=== PATIENT | male | born 1965 | race Caucasian/White ===

== ENCOUNTER 2023-11-27 10:02 | Day surgery (SDC) | payer OTHER ==
[~2023-11-27] VITALS: Ht 167.6 cm; Wt 75.3 kg
[~2023-11-27 10:02] MED LIST: AZELASTINE137 MCG/06; Lactated Ringer's 1,000 ML IV ONE; TAMS.4ER PO
[2023-11-27] MEDS ORDERED: ASPI81CH (10:33)
[2023-11-27] MEDS ORDERED: ATOR20 (10:33)
[2023-11-27] MEDS ORDERED: ALOGLIPTIN25 M1 (10:33)
[2023-11-27] MEDS ORDERED: ZYRTEC10 M2 (10:34)
[2023-11-27] MEDS ORDERED: Voltaren100 GM (10:35)
[2023-11-27] MEDS ORDERED: BENADRYL25 MG (10:35)
[2023-11-27] MEDS ORDERED: DOCU100 (10:35)
[2023-11-27] MEDS ORDERED: DOXY100 (10:36)
[2023-11-27] MEDS ORDERED: DOXE10 (10:36)
[2023-11-27] MEDS ORDERED: GLIP10 (10:37)
[2023-11-27] MEDS ORDERED: LEVSOD100 (10:38)
[2023-11-27] MEDS ORDERED: IMBRUVICA140 M1 (10:38)
[2023-11-27] MEDS ORDERED: Lisinopril2.5 MG (10:43)
[2023-11-27] MEDS ORDERED: MELA3 (10:43)
[2023-11-27] MEDS ORDERED: MAGNESIUM OXID500 MG (10:43)
[2023-11-27] MEDS ORDERED: MIRT30 (10:44)
[2023-11-27] MEDS ORDERED: METF500 (10:44)
[2023-11-27] MEDS ORDERED: MIRALAX17 GM (10:45)
[2023-11-27] MEDS ORDERED: PRAZ2 (10:45)
[2023-11-27] MEDS ORDERED: MONT10T (10:45)
[2023-11-27] MEDS ORDERED: SERT100 (10:46)
[2023-11-27] MEDS ORDERED: CeFAZolin Sodium 2,000 MG VIAL ONE (10:56)
[2023-11-27] MEDS ORDERED: NS 50 ML IV ONE (10:57)
[2023-11-27] MEDS ORDERED: Oxymetazoline 0.05% Nasal Relief Spray 15mL BTL ONE (11:05)
[2023-11-27] MEDS ORDERED: Lactated Ringer's 1,000 ML IV ONE ×2 (11:16→13:22)
[2023-11-27] MEDS ORDERED: Insulin Regular 100 UNIT/ML 10ML Vial ONE (11:28)
[2023-11-27] MEDS ORDERED: FentaNYL Citrate 50 MCG/ML 2 ML Injection ONE ×3 (11:41→14:19)
[2023-11-27] MEDS ORDERED: Midazolam HCl 1MG / ML 2ML Vial ONE (11:41)
--- NOTE | 2023-11-27 11:47 | NUR ---
11/27/23 1147 Olinda Moreno ORDERED 3 UNITS OF REGULAR INSULIN VIA IV FOR THE PATIENTS BLOOD GLUCOSE OF 256. VERIFIED 3 UNITS OF INSULIN WITH MANUEL HERNANDEZ.
[2023-11-27] MEDS ORDERED: Lidocaine 1%-Epineph 1:100000 20 ML MDV XX ONE (12:09)
[2023-11-27] MEDS ORDERED: Ondansetron HCl 2 MG / ML 2ML Vial ONE ×2 (12:14→13:56)
[2023-11-27] MEDS ORDERED: Dexamethasone Sod Phos 10 MG/ML 1ML VIAL ONE (12:14)
[2023-11-27] MEDS ORDERED: SuccINYLCHOLINE Chloride 100 MG/5 ML 5MLSYR ONE (12:14)
--- NOTE | 2023-11-27 14:17 | NUR ---
11/27/23 1417 Erin Lora PATIENT UP IN RECLINER, DRINKING WATER, AT BEDSIDE. REPORTS NAUSEA HAS RESOLVED AFTER ADMINISTRATION OF ZOFRAN 4MG IV X1.
[2023-11-27 14:25] VITALS: BP 147/96
== END 2023-11-27 15:10 | disposition home or self-care (01) ==
LOC: ORSCSDS 10:02
PROVIDERS: Otolaryngology
PROC: 09SM0ZZ Reposition Nasal Septum, Open Approach (ICD-10-PCS; principal; 2023-11-27 11:15)
DX: J34.2 Deviated nasal septum (principal); J34.3 Hypertrophy of nasal turbinates; J31.0 Chronic rhinitis; I10 Essential (primary) hypertension; G47.33 Obstructive sleep apnea (adult) (pediatric); E11.9 Type 2 diabetes mellitus without complications; Z79.84 Long term (current) use of oral hypoglycemic drugs; Z79.4 Long term (current) use of insulin; Z79.899 Other long term (current) drug therapy; Z79.82 Long term (current) use of aspirin
CPT/HCPCS: 82947; A9270; J0330; J0690; J1100; J1815; J2250; J2405; J3010; J7120